=== PATIENT | male | born 1980 | race Caucasian/White ===

== ENCOUNTER 2024-02-01 06:15 | Day surgery (SDC) | payer BC, SELFPAY ==
[2024-02-01] MEDS: CELEBREX 200 MG PO (07:37)
[2024-02-01] MEDS: NORMOSOL-R 1000 IV (07:38)
[2024-02-01] MEDS: TYLENOL 1000 MG PO (07:38)
[2024-02-01] MEDS: DILAUDID 0.5 MG IV ×2 (09:14→09:38)
--- NOTE | 2024-02-01 11:17 | SUR.OPER ---
Patient ambulated to the bathroom and voided. Patient feels very tired. Keeping patient for just a little longer to rest. VS stable. Will monitor patient.
== END 2024-02-01 11:26 | disposition home or self-care (01) ==
LOC: SDS 06:15
PROVIDERS: ATTENDING PHYSICIAN Orthopaedic Surgery Hand Surgery
DX: S46.212A Strain of muscle, fascia and tendon of other parts of biceps, left arm, initial encounter (principal); X58.XXXA Exposure to other specified factors, initial encounter
CPT/HCPCS: 24342; C1713